=== PATIENT | male | born 1945 | race Caucasian/White ===

== ENCOUNTER → 2021-01-03 | Outpatient (CLI) | payer OTHER ==
[~2021-01-03] MED LIST: COZAAR 25MG TAB25 MG PO; LIPITOR40 MG PO; NAPROSYN EC 50500 MG PO; VITAMIN D21250 MCG PO
== END ==
LOC: KOH-I 11:42
DX: F17.210 Nicotine dependence, cigarettes, uncomplicated (principal); R91.1 Solitary pulmonary nodule
CPT/HCPCS: 71271

== ENCOUNTER → 2022-03-25 | Outpatient (CLI) | payer OTHER | LOC: CT 13:32 | DX: F17.210 Nicotine dependence, cigarettes, uncomplicated (principal); R91.1 Solitary pulmonary nodule | CPT/HCPCS: 71271 ==